=== PATIENT | male | born 1950 | race Caucasian/White ===

== ENCOUNTER 2017-09-26 19:30 | Outpatient (CLI) | payer MEDICARE | END 2017-09-26 19:31 | disposition home or self-care (01) | LOC: SLEEPLAB 19:30 | PROVIDERS: ATTEND Family Medicine | DX: G47.33 Obstructive sleep apnea (adult) (pediatric) (principal); F51.9 Sleep disorder not due to a substance or known physiological condition, unspecified; G25.81 Restless legs syndrome; F41.9 Anxiety disorder, unspecified | CPT/HCPCS: 95810 ==

== ENCOUNTER 2017-10-03 19:30 | Outpatient (CLI) | payer MEDICARE | END 2017-10-03 19:31 | disposition home or self-care (01) | LOC: SLEEPLAB 19:30 | PROVIDERS: ATTEND Family Medicine | DX: G47.33 Obstructive sleep apnea (adult) (pediatric) (principal); F51.9 Sleep disorder not due to a substance or known physiological condition, unspecified; G25.81 Restless legs syndrome; R53.83 Other fatigue; R06.83 Snoring; F41.9 Anxiety disorder, unspecified | CPT/HCPCS: 95811 ==

== ENCOUNTER 2018-02-22 10:28 | Outpatient (CLI) | payer MEDICARE ==
--- NOTE | 2018-02-22 13:08 | RAD ---
LUMBAR SPINE THREE VIEWS: INDICATIONS: Herniated disk. Lumbar pain. Lumbar radiculopathy. TECHNIQUE: Lateral views area obtained in neutral, flexion, and extension positions. FINDINGS: The lumbar vertebrae maintain height. Loss of disk space and degenerative changes are prominent at L 4-L5 and at L5-S1. In the neutral position, there is normal alignment throughout. With flexion, the re is minimal anterolisthesis of L3-L4. No other significant listhesis or change in alignment is see n with flexion or extension. Facet hypertrophy. IMPRESSION: Moderate degenerative changes of the lumbar spine, as described. POS: [facility]
--- NOTE | 2018-02-22 13:55 | MRI ---
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 Herniated disc at L4-5. Intense low back pain and bilateral foot numbness. COMPARISON: No prior cross-sectional imaging studies of lumbar spine. FINDINGS: For the purposes of this report, it will be assumed that there are five lumbar-type vertebrae. Verteb ral body heights are maintained. No major pathology of perivertebral spaces. T12-L1: Mild disc space narrowing. Diffuse disc bulge. Mild central spinal canal stenosis. No high grade neur al foraminal stenosis. Conus medullaris terminates at mid L1. L1-2: Normal. L2-3: Mild disc space narrowing. Superimposed on a mild diffuse disc bulge, there is a moderate sized centr al and bilateral paracentral (left greater than right) complex disc extrusion (with inferior migratio n down to the pedicle level of L3) which has a posterior component that has hyperintense signal on th e T1 WI. This hyperintense component could represent hemorrhage. It is less likely to represent bone marrow due to partial ossification of a disc extrusion. This disc extrusion displaces some of the lef t-sided cauda equina nerve roots, possibly compressing one or more of them against the left facet com plex. No high grade degenerative facet changes. Moderate central spinal canal stenosis and moderate t o severe thecal sac stenosis. No high grade neural foraminal stenosis. L3-4: Bilateral mild to moderate degenerative facet changes result in a mild Grade I anterolisthesis of L3 on L4. Mild disc space narrowing. Disc desiccation. Prominent diffuse disc bulge. Superimposed shallo w central disc protrusion with annular fissure. Mild ligamentum flavum thickening. Moderate to severe central spinal canal stenosis. Moderate to severe thecal sac stenosis and lateral recess stenosis. M oderate right neural foraminal stenosis. Mild to moderate left neural foraminal stenosis. L4-5: Asymmetrically severe right-sided disc space narrowing with right-sided mixed Modic Type I and III en d plate changes. Slight degenerative retrolisthesis of L4 on L5. Diffuse disc bulge, asymmetrically l arger at the central, left paracentral, and left lateral aspects compared to the right. Mild to moder ate central spinal canal stenosis. Moderate thecal sac stenosis. Moderate right neural foraminal sten osis. Mild to moderate left neural foraminal stenosis. Lateral recess stenosis bilaterally, especiall y on the left side. Mild bilateral degenerative facet changes. L5-S1: Disc space maintained, except for asymmetrical high grade narrowing on the left side where there are Modic Type I changes. Moderate to severe left neural foraminal stenosis. There is also bone marrow ed ivette involving the left facet complex which has moderate to severe degenerative hypertrophy. The bone marrow edema is also seen in adjacent portion of left iliac bone, only partially imaged on sagittal s equences. In addition to a diffuse disc bulge, there is a superimposed small to moderate size central disc herniation which indents the ventral aspect of the thecal sac, contacting the bilateral S1 nerv e root. Lateral recess stenosis that displaces the left S1 nerve root against the left facet complex. Mild central spinal canal stenosis and mild thecal sac stenosis. Mild right neural foraminal stenosi s. Moderate to severe left neural foraminal stenosis. IMPRESSION: 1. Advanced, moderate degenerative disc changes asymmetrically on the right side at L4-5 and on the left side at L5-S1. 2. Central disc herniation at L5-S1. 3. Moderate to severe left neural foraminal stenosis at L5-S1. 4. Moderate sized central and left paracentral disc extrusion at L2-3 with possible impingement on t he left sideed cauda equina nerve roots. 5. The disc extrusion at L2-3 also has hyperintense signal on T1 WI which could represent hemorrhage at the disc extrusion, or perhaps ossified bone marrow associated with the disc extrusion. A noncont rast CT would be able to distinguish the two. 6. Other levels of significant central spinal canal stenosis and lateral recess stenosis, including L3-4. PETE Garcia POS: [facility]
== END 2018-02-22 10:29 | disposition home or self-care (01) ==
LOC: TBSIIMAG 10:28
PROVIDERS: ATTEND Neurological Surgery
DX: Q76.2 Congenital spondylolisthesis (principal); M47.897 Other spondylosis, lumbosacral region; M51.27 Other intervertebral disc displacement, lumbosacral region; M99.83 Other biomechanical lesions of lumbar region; M99.84 Other biomechanical lesions of sacral region; M48.061 Spinal stenosis, lumbar region without neurogenic claudication
CPT/HCPCS: 72100; 72148

== ENCOUNTER 2018-12-30 13:48 | Outpatient (CLI) | payer MEDICARE ==
--- NOTE | 2018-12-30 15:38 | MRI ---
LUMBAR SPINE MRI WITHOUT IV CONTRAST: HISTORY: Lumbar radiculopathy. COMPARISON: 02/22/2018. FINDINGS: Generalized disk desiccation changes and ligament and facet hypertrophic changes. No significant abn ormal marrow signal. Conus medullaris region appears unremarkable. T2-L1: Generalized disk-osteophytosis with mild bilateral recess stenosis. L1-L2: No significant central canal or foraminal stenosis. L2-L3: Diffuse disk bulging with a focally prominent left central protrusion with T2 and T1 hyperint ensity signal, unchanged with severe central canal and very severe left lateral recess stenosis and m oderate bilateral foraminal stenosis worse on the left side. Severe central canal and lateral recess stenosis and moderate bilateral foraminal stenosis. L4-L5: Moderate central canal and severe left lateral recess and left foraminal stenosis with modera te foraminal stenosis. L5-S1: Prominent disk bulging with prominent focal central protrusion with moderate canal and latera l recess stenosis and moderate foraminal stenosis worse on the left side. IMPRESSION: Variable severity multilevel canal, lateral recess, and foraminal stenosis of the lumbar spine as abo ve. POS: [facility]
== END 2018-12-30 13:49 | disposition home or self-care (01) ==
LOC: BICMRI 13:48
PROVIDERS: ATTEND Family Medicine
DX: M54.16 Radiculopathy, lumbar region (principal); M48.061 Spinal stenosis, lumbar region without neurogenic claudication; M48.07 Spinal stenosis, lumbosacral region
CPT/HCPCS: 72148

== ENCOUNTER 2022-01-05 16:42 | Outpatient (CLI) | payer MEDICARE ==
[2022-01-05 17:39] LABS: #Basophils 0.1 10x3/uL (0.0-0.2); #Eosinphils 0.7 10x3/uL (0.0-0.5); #Monocytes 0.6 10x3/uL (0.0-1.1); #Neutrophils 3.6 10x3/uL (1.5-8.4); %Basophils 1.5 % (0.0-2.0); %Eosinophils 8.5 % (0.0-6.0); %Lymphocytes 36.4 % (18.0-47.0); %Monocytes 7.8 % (0.0-10.0); %Neutrophils 45.5 % (40.0-75.0); Mean Corpuscular HGB CONC 35.6 g/dL (32.0-36.0); Mean Corpuscular Hemoglobin 30.5 pg (27.0-33.0); Mean Corpuscular Volume 85.7 fl (81.2-95.1); Mean Platelet Volume 7.9 fl (7.4-10.4); Platelet Count 343 10x3/uL (150-450); RBC Distribution Width 12.7 % (11.5-14.5); Red Blood Cell (RBC) Count 5.25 10x6/uL (4.32-5.72); White Blood Cell (WBC) Count 7.8 10x3/uL (3.5-10.5)
[2022-01-05 17:54] LABS: ALT (SGPT) 43 U/L (8-55); AST (SGOT) 25 U/L (5-34); Albumin 4.6 g/dL (3.4-4.8); Alkaline Phosphatase 89 U/L (40-110); Anion Gap 13 mmol/L (10-20); BUN (Urea Nitrogen) 18 mg/dL (8.4-25.7); Bilirubin, Total 0.4 mg/dL (0.2-1.2); Calc. Creatinine Clearance 0 mL/min (70-130); Calcium 9.8 mg/dL (7.8-10.44); Carbon Dioxide 29 mmol/L (23-31); Chloride 102 mmol/L (98-107); Glucose 110 mg/dL (83-110); Potassium 3.9 mmol/L (3.5-5.1); Protein, Total 7.6 g/dL (5.8-8.1); Sodium 140 mmol/L (136-145)
[2022-01-06 02:13] LABS: SARS-CoV-2 PCR by NAA Not Detected (NotDetected)
== END 2022-01-05 16:43 | disposition home or self-care (01) ==
LOC: LABBT 16:42
PROVIDERS: ATTEND Internal Medicine Cardiovascular Disease
DX: Z01.812 Encounter for preprocedural laboratory examination (principal); Z20.822 Contact with and (suspected) exposure to COVID-19
CPT/HCPCS: 80053; 85025; U0003; U0005

== ENCOUNTER 2022-01-09 08:45 | Day surgery (SDC) | payer MEDICARE ==
[2022-01-06 09:51] VITALS: BMI 28.0
[2022-01-09] MEDS ORDERED: Iopamidol 370 76% 100 ML VIAL ONE (08:46)
[2022-01-09 10:07] LABS: Cardiac Risk 4.6 (Less than 4.5)
[2022-01-09] MEDS ORDERED: Heparin 10,000 UNITS/ 10 ML VIAL ONE (10:17)
[2022-01-09] MEDS ORDERED: Midazolam HCl 2 mg/2 ml Vial ONE (10:18)
[2022-01-09] MEDS ORDERED: Fentanyl 100 MCG/2 ML VIAL ONE (10:18)
[2022-01-09] MEDS ORDERED: TICAGRELOR 90 MG TABLET ONE (11:18)
== END 2022-01-09 17:41 | disposition home or self-care (01) ==
LOC: SDC 08:45
PROVIDERS: ATTEND Internal Medicine Cardiovascular Disease
PROC: 4A023N7 Measurement of Cardiac Sampling and Pressure, Left Heart, Percutaneous Approach (ICD-10-PCS; principal; 2022-01-09)
PROC: B2111ZZ Fluoroscopy of Multiple Coronary Arteries using Low Osmolar Contrast (ICD-10-PCS; 2022-01-09)
PROC: 02703DZ Dilation of Coronary Artery, One Artery with Intraluminal Device, Percutaneous Approach (ICD-10-PCS; 2022-01-09)
DX: R06.02 Shortness of breath (principal); I25.10 Atherosclerotic heart disease of native coronary artery without angina pectoris; I73.9 Peripheral vascular disease, unspecified; I10 Essential (primary) hypertension; E78.5 Hyperlipidemia, unspecified; Z79.82 Long term (current) use of aspirin; Z79.899 Other long term (current) drug therapy; Z88.0 Allergy status to penicillin; Z88.8 Allergy status to other drugs, medicaments and biological substances
CPT/HCPCS: 80061; 85347 ×2; 92928; 93005 ×2; 93458; 97139; C1769; C1876; 36245; 75630; 75716; 93010; 99152; 99153; J1644; J2250; J3010; Q9967

== ENCOUNTER 2022-03-21 12:29 | Outpatient (CLI) | payer MEDICARE | END 2022-03-21 12:30 | disposition home or self-care (01) | LOC: EEG 12:29 | PROVIDERS: ATTEND Psychiatry & Neurology Neurology | DX: R41.3 Other amnesia (principal); G93.40 Encephalopathy, unspecified | CPT/HCPCS: 95816; 95957 ==

== ENCOUNTER 2022-09-06 12:20 | Outpatient (CLI) | payer MEDICARE | END 2022-09-06 12:21 | disposition home or self-care (01) | LOC: TBSIIMAG 12:20 | PROVIDERS: ATTEND Specialist | DX: M51.16 Intervertebral disc disorders with radiculopathy, lumbar region (principal); M51.17 Intervertebral disc disorders with radiculopathy, lumbosacral region | CPT/HCPCS: 72148 ==

== ENCOUNTER 2024-01-17 08:14 | Outpatient (CLI) | payer MEDICARE | END 2024-01-17 08:15 | disposition home or self-care (01) | LOC: RAD 08:14 | PROVIDERS: ATTEND Internal Medicine Critical Care Medicine | DX: R06.00 Dyspnea, unspecified (principal) | CPT/HCPCS: 71046 ==